=== PATIENT | male | born 1960 | race Caucasian/White ===

== ENCOUNTER 2018-10-18 12:41 | Emergency (ER) | payer OTHER, SELFPAY ==
[2018-10-18 12:43] VITALS: BP 170/105; PULSE 103; RESP 17; TEMP 36.9; O2SAT 98; BMI 32.1
--- NOTE | 2018-10-18 13:07 | EKG12_ITS ---
Test Reason : HYPERTENSION Blood Pressure : / mmHG Vent. Rate : 092 BPM Atrial Rate : 092 BPM P-R Int : 136 ms QRS Dur : 090 ms QT Int : 356 ms P-R-T Axes : 034 -24 001 degrees QTc Int : 440 ms Normal sinus rhythm Moderate voltage criteria for LVH, may be normal variant Cannot rule out Septal infarct , age undetermined Cannot rule out Inferior infarct , age undetermined Abnormal ECG Confirmed by SARAH BETH MAYFIELD ([id number]), publication editor SAMMY CARTER ([id number]) on 11/01/2018 1:19:00 PM Referred By: CIPRIANO Confirmed By:SARAH BETH MAYFIELD
--- NOTE | 2018-10-18 13:07 | RAD_ITS ---
STUDY: X-RAY CHEST REASON FOR EXAM: Male, 58 years old. Elevated blood pressure. TECHNIQUE: PA and lateral views of the chest. COMPARISON: None. FINDINGS: The lungs are clear and expanded. There is no demonstrated pleural abnormality. Normal size heart. Normal mediastinum and marissa. Normal visualized pulmonary arteries. There is minor atherosclerotic calcification of the aortic arch. There are multilevel degenerative changes of the visualized thoracic spine. Normal visualized ribs, clavicles, and shoulders. There is no demonstrated abnormality of the visualized soft tissue structures of the upper abdomen. RAD/Chest PA and Lateral IMPRESSION: No acute cardiopulmonary disease. Electronically Signed: Rick Jackson MD at 14:33 EST , Service support ,
--- NOTE | 2018-10-18 13:10 | NURSING ---
NO OLD EKGS
[2018-10-18 13:27] VITALS: BP 183/113; PULSE 91; RESP 19; O2SAT 96
[2018-10-18] MEDS: Lisinopril 2.5 MG Tablet PO (13:38)
[2018-10-18 13:49] LABS: Absolute Lymphocyte Count 1.88 X10^3/ul (0.83-4.51); Absolute Neutrophil Count 4.5 X10^3/uL (2.0-7.7); Basophil# 0.02 X10^3/uL; Basophil% 0.3 % (0-1); Eosinophil# 0.11 X10^3/uL; Eosinophils% 1.5 % (0-5); Hematocrit 48.5 % (40-54); Hemoglobin 16.4 g/dl (13.0-16.5); Lymphocyte # 1.88 X10^3/ul (4.0); Lymphocyte % 26.2 % (19-41); Mean Corp Hgb Conc 33.8 g/gl (32-36); Mean Corpuscular Hgb 29.7 pg (27.0-32.0); Mean Corpuscular Volume 87.9 fL (80-94); Mean Platelet Vol. 9.4 fl (6.2-12.0); Monocyte# 0.61 X10^3/uL; Monocyte% 8.5 % (0-10); Neutrophil # 4.54 X10^3/uL (2.7-7.7); Neutrophil % 63.4 % (47-70); Platelet Count 252 K/mm3 (150-450); RBC Distribution Width CV 13.1 % (11.6-14.6); RBC Distribution Width SD 42.3 fl (35.1-43.9); Red Blood Count 5.52 M/mm3 (4.6-6.2); White Blood Count 7.2 K/mm3 (4.4-11.0)
[2018-10-18 13:50] LABS: POSITIVE COUNT NO; POSITIVE DIFFERENTIAL NO; POSITIVE MORPHOLOGY NO
[2018-10-18 13:58] LABS: Anion Gap 9 (5-15); BUN 18 mg/dL (7-18); Calcium,Total 8.8 mg/dL (8.5-10.1); Chloride 107 mmol/L (98-107); EST Glomerular Filtration Rate 92 mL/min (>60); Est Glom Filt Rate - Afr Amer 112 mL/min (>60); Estimated Creatinine Clearance 101.11 ml/min; Glucose 87 mg/dL (74-106); Potassium 3.9 mmol/L (3.5-5.1); Sodium Level 141 mmol/L (136-145)
[2018-10-18 14:09] VITALS: BP 175/112; PULSE 88; RESP 15; O2SAT 97
--- NOTE | 2018-10-18 14:12 | ED.VISSUMM ---
- ER Visit Summary Date of Service: 10/18/18 Chief Complaint: Hypertension History of Present Illness: The patient is a 58 M presenting for evaluation secondary to hypertension. Patient reports that he has no prior history of medical issues, and takes no medications. Patient reports that he recently was diagnosed as having shingles. He reports that that has since been resolving, but over the course of the last couple of days he has noticed that he has had a headache. He took his blood pressure at home it was noted to be 197/119. Patient states that he typically has normal blood pressures. He does endorse some pain in his chest, but states that it is associated strictly with palpation over his area of rash from his shingles. Denies any shortness of breath. Denies any presence of fevers. He does endorse that he had a mild cough. Review of systems otherwise negative. Physical Examination: Vital signs are within normal limits except for blood pressure 175/115, patient is afebrile. General: Patient is well-nourished well-developed and in no acute distress. Head: Normocephalic, atraumatic Eyes: Pupils equal round and reactive bilaterally, extra occular motion intact bialterally ENT: Moist mucous membranes Neck: Supple, no lymphadenopathy, no JVD, no meningismus CVS: Heart regular rate and rhythm, no murmurs, rubs or gallops, radial pulses 2+ bilaterally Resp: Respirations nondistressed, lung sounds clear bilaterally Abdomen: Soft, nontender, nondistended, no palpable masses, normal bowel sounds Back: Nontender Extremities: Nontender, atraumatic, active full range of motion, no peripheral edema Skin: warm, no rashes, no petechia Neuro: Alert and oriented x 4, CN 2-12 intact, no lateralizing neurological defecits Psyc: Normal affect Test Results: EKG demonstrates sinus rhythm at [address] segments normal T waves and voltage criteria for LVH. CBC chemistry troponin are negative, PA and lateral chest x-ray by my personal review were negative. Emergency Department Course and Treatment: Patient presented secondary to hypertension. Patient's pain seems clearly reproducible to palpation and really was not even present at all on my physical exam. However, I did evaluate the patient for the possibility of endorgan damage. His EKG shows evidence of LVH making it seem that the patient potentially has had hypertension for longer than just the last couple of days. Patient's troponin was negative, chest x-ray was negative. Patient was given a low dose of lisinopril in the emergency department. At this point I will discharge the patient with lisinopril, and follow-up with an outpatient primary care physician. Disposition: Discharge Impression: 1. Hypertension This note was generated with [employer] dictation software. It may contain incorrect words, spelling, and punctuation that were not noted in review of the chart prior to signing ED Disposition - Plan for ED Patient: Disposition: Home or Assisted Living Chief Complaint: Hypertension Diagnosis: Hypertension Instructions: ED Hypertension New Begin Tx Prescriptions: Lisinopril [Zestril] 2.5 mg PO DAILY #30 tab Referrals: Jorge A Delong III, MD [STAFF PHYSICIAN] - As soon as possible
[2018-10-18 14:25] VITALS: BP 185/104; PULSE 72; RESP 16; O2SAT 97
== END 2018-10-18 14:27 | disposition home or self-care (01) ==
PROVIDERS: Emergency Provider Emergency Medicine
DX: I10 Essential (primary) hypertension (principal)
CPT/HCPCS: 71046; 80048; 84484; 85025; 93005; 99285; A4216

== ENCOUNTER 2021-01-03 08:09 | Outpatient (RCR) | payer OTHER, SELFPAY ==
[2021-01-03] MEDS: COVID-19 VACC, MRNA(PFIZER)/PF 30 MCG/0.3 ML SYRINGE IM (07:03)
[2021-01-24] MEDS: COVID-19 VACC, MRNA(PFIZER)/PF 30 MCG/0.3 ML SYRINGE IM (07:04)
== END 2021-04-02 23:59 ==
LOC: IMMUN 08:09
PROVIDERS: Visit Provider Family Medicine
DX: Z23 Encounter for immunization (principal)
CPT/HCPCS: 0001A; 0002A; 91300